=== PATIENT | female | born 1955 | race Caucasian/White ===

== ENCOUNTER → 2018-09-20 07:54 | Outpatient (CLI) | payer MEDICARE, OTHER ==
[2011-05-18 10:04] VITALS: BMI 29.8
== END | disposition home or self-care (01) ==
LOC: D.MRI 07:54
PROVIDERS: ATTEND Orthopaedic Surgery
DX: S76.191A Other specified injury of right quadriceps muscle, fascia and tendon, initial encounter (principal)

== ENCOUNTER 2018-11-10 05:30 | Day surgery (SDC) | payer MEDICARE, OTHER ==
[2018-11-09 15:27] LABS: BASOPHILS 0.3 % (0-2); EOSINOPHILS 3.4 % (0-7); HEMATOCRIT 40.5 % (36.0-48.0); HEMOGLOBIN 14.2 g/dL (12-16); IMMATURE GRANULOCYTES 0.2 % (0-5); LYMPHOCYTES 20.9 % (15-50); MCH 30.7 pg (26.0-34.0); MCHC 35.1 g/dL (31.0-37.0); MCV 87.7 fL (80.0-100.0); MEAN PLATELET VOLUME 8.6 fL (7.4-10.4); MONOCYTES 9.4 % (2-11); NEUTROPHILS 65.8 % (40-80); PLATELET COUNT 161 10x3/uL (130-400); RBC 4.62 10x6/uL (4.00-5.40); RDW 13.2 % (11.5-14.5); WBC 6.4 10x3/uL (4.8-10.8)
[~2018-11-10] VITALS: Ht 170.2 cm; Wt 88.5 kg
[~2018-11-10 05:30] MED LIST: HYDROCHLOROTH12.5 M1 PO; SYNTHROID175 MCG PO; XALATAN 0.0052.5 ML EACH EYE
[2018-11-10 06:30] VITALS: BP 149/113; Ht 170.2 cm; Wt 88.5 kg
[2018-11-10] MEDS ORDERED: HYDROCODON-ACE1 EA10 PO (08:09)
--- NOTE | 2018-11-11 09:01 | OP ---
PATIENT NAME: DEEDEE HEADLEY MEDICAL RECORD: [id number] :51 LOCATION:D.OPS ADMISSION DATE: SURGEON: KINGA SNELL MD DATE OF OPERATION: 11/10/2018 PREOPERATIVE DIAGNOSES: 1. Medial meniscus tear of the right knee. 2. Patellofemoral syndrome of the right knee. POSTOPERATIVE DIAGNOSES: 1. Medial meniscus tear of the right knee. 2. Patellofemoral syndrome of the right knee. PROCEDURE: 1. Arthroscopic partial medial meniscectomy, right knee. 2. Arthroscopic lateral release, right knee. SURGEON: Kinga Snell MD INKER AND OPAQUER: Phong Back. INTRAOPERATIVE COMPLICATIONS: None. SUMMARY OF PATHOLOGIC FINDINGS: The patient was indeed found to have complex tear of the posterior horn of medial meniscus as well as patellofemoral syndrome as seen on the preoperative exam and MRI. OPERATIVE SUMMARY IN DETAIL: After obtaining appropriate preoperative orthopedic surgery consent as well as anesthetic consultation, evaluation and clearance, the patient was brought to the operating room and placed on the operating table in a supine position. After adequate general laryngeal mask airway was administered, tourniquet was placed on the proximal aspect of the right lower extremity. Right lower extremity was then prepped and draped in routine sterile fashion. At this time, the appropriate timeout was taken including the appropriate patient identifiers, medications and allergies. This was agreed upon by all in the operative suite. The leg was elevated and exsanguinated, tourniquet was inflated to 350 mmHg. Routine inferolateral portal was established followed by superior and inferomedial portal. Diagnostic arthroscopy showed the patient to have the above findings. Attention was first turned to the medial meniscus. Combination of 3.5 full-radius resector as well as a meniscotome were utilized to debride the meniscus back to stable meniscal elements. Having completed this, attention was turned to the lateral release, arthroscopy visualization was moved to the medial side with direct visualization of the lateral retinaculum. Lateral retinaculum was released from just inferior to the vastus lateralis to the inferior lateral arthroscopic portal. Having completed this, arthroscopy portals were closed in routine interrupted fashion using 4-0 Prolene. Knee was insufflated with 30 cc of 0.25% Marcaine with epinephrine and 80 mg of Depo-Medrol. Sterile dressings were applied. Tourniquet was deflated. The patient was awakened, taken to recovery room in stable condition. All final needle and sponge counts were correct. TRANSINT:[id number] Voice Confirmation ID: [id number] DOCUMENT ID: [id number] OPERATIVE REPORT [id number] DEEDEE HEADLEY MD, KINGA ALVAREZ at 0901 CC: [id number] DICTATION DATE: 11/10/18 0807 ENAMEL BURNER: 11/10/18 0853 [facility] 11/10/[address] [id number]
== END 2018-11-10 10:50 | disposition home or self-care (01) ==
LOC: D.OPS 05:30 → D.PAN 07:30 → D.OPS 07:30
PROVIDERS: Anesthesiology; ATTEND Orthopaedic Surgery
DX: S83.231A Complex tear of medial meniscus, current injury, right knee, initial encounter (principal); M22.2X1 Patellofemoral disorders, right knee; Z01.812 Encounter for preprocedural laboratory examination

== ENCOUNTER → 2019-01-17 10:05 | Outpatient (CLI) | payer MEDICARE, OTHER ==
[2018-11-10 06:30] VITALS: BMI 30.6
[~2019-01-17 10:05] MED LIST changes: +HYDROCODON-ACE1 EA10 PO
== END | disposition home or self-care (01) ==
LOC: D.MRI 10:05
PROVIDERS: ATTEND Clinical Nurse Specialist Family Health
DX: M25.561 Pain in right knee (principal)

== ENCOUNTER 2020-06-25 11:11 | Emergency (ER) | payer MEDICARE, OTHER ==
[~2020-06-25] VITALS: Ht 170.2 cm; Wt 83.6 kg
[2020-06-25 11:21] VITALS: Ht 170.2 cm; Wt 83.6 kg
[2020-06-25 11:40] LABS: BASOPHILS 0.4 % (0-2); EOSINOPHILS 2.1 % (0-7); HEMATOCRIT 48.8 % (36.0-48.0); HEMOGLOBIN 16.8 g/dL (12-16); LYMPHOCYTE ABS# 1.07 10x3/uL (1.18-3.74); LYMPHOCYTES 22.5 % (15-50); MCH 29.7 pg (26.0-34.0); MCHC 34.4 g/dL (31.0-37.0); MCV 86.2 fL (80.0-100.0); MEAN PLATELET VOLUME 8.6 fL (7.4-10.4); MONOCYTES 8.8 % (2-11); NEUTROPHIL ABS# 3.15 10x3/uL (1.56-6.13); NEUTROPHILS 66.2 % (40-80); PLATELET COUNT 159 10x3/uL (130-400); RBC 5.66 10x6/uL (4.00-5.40); RDW 12.5 % (11.5-14.5); WBC 4.8 10x3/uL (4.8-10.8)
[2020-06-25 11:58] LABS: CALC OSMOLALITY 281 mosm/kg (275-300); CALCIUM 9.3 mg/dL (8.5-10.1); CARBON DIOXIDE 29.2 mmol/L (21.0-32.0); CHLORIDE - SERUM 102 mmol/L (98-107); CREATININE - SERUM 0.8 mg/dL (0.6-1.3); GLUCOSE 104 mg/dL (74-106); POTASSIUM - SERUM 4.5 mmol/L (3.5-5.1); SODIUM 140 mmol/L (136-145); UREA NITROGEN 20 mg/dL (7-18); eGFR NON AFRICAN AMERICAN 76 mL/min (90-120)
[2020-06-25 12:00] VITALS: BP 141/93
[2020-06-25 12:03] LABS: ALBUMIN 4.2 g/dL (3.4-5.0); ALKALINE PHOSPHATASE 113 U/L (30-120); ALT (SGPT) 35 U/L (10-68); BILIRUBIN - TOTAL 0.53 mg/dL (0.2-1.3); CKMB 1.3 U/L (0.0-3.6); CREATINE KINASE 82 UL (21-215); MAGNESIUM - SERUM 2.2 mg/dL (1.8-2.4); PROTEIN - SERUM 7.7 g/dL (6.4-8.2)
[2020-06-25 12:04] LABS: TROPONIN-I < 0.017 ng/mL (0.000-0.060)
[2020-06-25 13:04] LABS: APTT 26.3 SECONDS (22.8-39.4); INR 1.03 (0.85-1.17); PROTIME 12.5 SECONDS (11.6-15.0)
== END 2020-06-25 15:23 | disposition home or self-care (01) ==
LOC: D.ER 11:11
PROVIDERS: Family Medicine
DX: R07.89 Other chest pain (principal); I10 Essential (primary) hypertension

== ENCOUNTER → 2020-09-12 11:59 | Outpatient (CLI) | payer MEDICARE, OTHER ==
[2020-06-25 11:21] VITALS: BMI 28.9
== END | disposition home or self-care (01) ==
LOC: D.MRI 11:59
PROVIDERS: ATTEND Orthopaedic Surgery
DX: M25.561 Pain in right knee (principal)